=== PATIENT | male | born 1970 | race Caucasian/White ===

== ENCOUNTER 2021-01-18 02:28 | Emergency (ER) | payer OTHER, SELFPAY ==
--- NOTE | ~2021-01-18 | XR_ITS ---
EXAMINATION: XR chest 2V DATE: 01/18/2021 02:54 INDICATION: Chest pain TECHNIQUE: PA and lateral views of the chest are obtained. COMPARISON: 01/26/2015 FINDINGS: The lungs are free of acute opacities. There is no pleural effusion or pneumothorax. The ca rdiomediastinal silhouette is normal. There is mild thoracic spondylosis. IMPRESSION: 1. No acute cardiopulmonary abnormality. Reviewed, dictated and finalized at location A.
[2021-01-18 02:31] VITALS: BP 143/103; PULSE 65; RESP 16; TEMP 36.8; O2SAT 100
--- NOTE | 2021-01-18 02:35 | ECG_ITS ---
Measurements Intervals [place] Rate: 58 P: 27 MS: 164 QRS: 26 QRSD: 89 T: -3 QT: 396 QTc: 391 Interpretive Statements SINUS BRADYCARDIA NONSPECIFIC T-WAVE ABNORMALITY- INF/LAT LEADS BORDERLINE ECG Electronically Signed On 01-18-2021 7:14:28 CDT by lFaquito Mcneill D.O.
[2021-01-18 02:40] VITALS: PULSE 74
[2021-01-18 02:52] LABS: Basophils Absolute Auto 0.1 K/mm3 (0.0-0.1); Basophils Percent Auto 0.8 % (0.2-1.2); Eosinophils Absolute Auto 0.2 K/mm3 (0-0.3); Eosinophils Percent Auto 2.1 % (0-4.4); Hematocrit 48.5 % (42.0-52.0); Hemoglobin 16.7 g/dL (14.0-18.0); Lymphocytes Absolute Auto 3.46 K/mm3 (0.9-3.2); Lymphocytes Percent Auto 34.4 % (18.3-44.2); Mean Corpuscular HGB Conc 34.4 g/dl (32-36); Mean Corpuscular Hemoglobin 31.3 pg (26-34); Mean Platelet Volume 9.8 fl (7.4-10.4); Monocytes Absolute Auto 0.8 K/mm3 (0.1-0.6); Monocytes Percent Auto 8.2 % (2.6-8.5); Neutrophils Absolute Auto 5.4 K/mm3 (1.3-6.7); Neutrophils Percent Auto 53.5 % (45.5-73.1); Platelet Count Result 172 k/mm3 (150-375); Red Blood Count 5.33 M/mm3 (4.6-6.20); Red Cell Distribution Width 12.5 % (11.5-14.5); White Blood Count 10.1 K/mm3 (4.5-10.0)
[2021-01-18 03:02] LABS: INR 0.9
[2021-01-18 03:14] LABS: Anion Gap 6 mmol/L (8-16); Blood Urea Nitrogen 16 mg/dL (9-20); Calcium 9.7 mg/dL (8.4-10.2); Carbon Dioxide 26 mmol/L (22-30); Chloride 106 mmol/L (98-107); Estimated CRCL calculation 113 ml/min; Estimated Glomerular Filt Rate > 60; Glucose 106 mg/dL (75-110); Potassium 4.3 mmol/L (3.4-5.0); Sodium 138 mmol/L (137-145)
[2021-01-18 03:16] LABS: Troponin I < 0.012 ng/mL (0.000-0.034)
[2021-01-18] MEDS: ASPIRIN 81 MG CHEWABLE TABLET 324 MG PO (03:17)
[2021-01-18 03:19] VITALS: BP 124/86; PULSE 54; RESP 13; O2SAT 97
--- NOTE | 2021-01-18 03:24 | ED.CHESTPAIN ---
HPI - Chest Pain General Chief Complaint: Chest Pain Stated Complaint: chest pain Time Seen by Provider: 01/18/21 03:13 Source: patient and RN notes reviewed Mode of arrival: ambulatory Limitations: no limitations History of Present Illness HPI narrative: Patient is 50 years old white male presents with intermittent chest pain for the last 2 weeks radiating to left upper extremity. No worse 1 was 8 out of 10, currently 1 out of 10. Patient had similar symptoms years ago with negative cardiac cath years ago. And was told that he had PVCs causing his chest pain. Patient denies any fever, chills, nausea, vomiting, shortness of breath, back pain or abdominal pain. The patient and his reports times of stress lately. Patient does not take medicine at home, patient drinks occasionally, smokes cigarettes, denies drug use. No family history of coronary artery disease. Related Data Home Medications Medication Instructions Recorded Confirmed No Home Medications 01/18/21 Allergies Allergy/AdvReac Type Severity Reaction Status Date / Time tramadol Allergy Unknown Blister Verified 01/18/21 02:34 Review of Systems Review of Systems: Narrative: CONSTITUTIONAL: Denies fever, chills, or sweats. EYES: Denies visual changes, redness, or discharge. ENT: Denies rhinorrhea, congestion, sore throat, or otalgia. CARDIOVASCULAR: Denies chest pain, palpitations, or edema. RESPIRATORY: Denies cough or dyspnea. GASTROINTESTINAL: Denies abdominal pain, nausea, vomiting, or diarrhea. GENITOURINARY: Denies dysuria or hematuria. SKIN: Denies rash or itching. MUSCULOSKELETAL: Denies back pain, joint pain, or myalgia. NEUROLOGIC: Denies headache, numbness, or weakness. PSYCHIATRIC: Denies anxiety or depression. PMFSH Family History Family History Other Carcinoma of colon Family history of arthritis Family history of cardiovascular disease Family history of glaucoma Family history of malignant neoplasm Hypertension Malignant neoplasm of prostate Social History Social History Smoking status: Smoker, status unknown Alcohol intake: current Exam Narrative: Exam Narrative: General appearance: Well-developed, well-nourished, anxious, restless, at the bedside Skin: Normal color Head: Normocephalic, nontraumatic Eyes: Clear conjunctiva ENT: Oropharynx normal, ears normal, nose normal Neck: Supple, nontender Chest and respiratory: Airway patent, no respiratory distress, no accessory muscle use Heart: Regular rate/rhythm Abdomen: Soft, nontender, no organomegaly, quiet bowel sounds Vascular: Normal peripheral pulses, normal capillary refill. Musculoskeletal: Normal range of motion, nontender back Neurologic: Alert and oriented ?3, FLEET MECHANIC is normal as tested, no gross motor deficit Course Course Emergency Course: Stable, improving Vital Signs Vital signs: Vital Signs Temperature 36.8 C 01/18/21 02:31 Pulse Rate 65 01/18/21 02:31 Respiratory Rate 16 01/18/21 02:31 Blood Pressure 143/103 H 01/18/21 02:31 Pulse Oximetry 100 01/18/21 02:31 Temperature 36.8 C 01/18/21 02:31 Pulse Rate 69 01/18/21 05:35 Respiratory Rate 21 H 01/18/21 05:35 Blood Pressure 119/79 01/18/21 05:35 Pulse Oximetry 94 01/18/21 05:35 MDM - Chest Pain MDM Narrative Medical decision making narrative: Patient presents with intermittent chest pain for the last 2 weeks. No coronary artery risk factors. Patient under a lot of stress, which high likely causing patient's symptoms. Labs, EKG, chest x-ray ordered. Further plan to follow Diff
[2021-01-18] MEDS: LORazepam (*CRX) 0.5 MG TABLET 1 MG PO (03:31)
[2021-01-18 05:35] VITALS: BP 119/79; PULSE 69; RESP 21; O2SAT 94
[2021-01-18 06:14] LABS: Troponin I < 0.012 ng/mL (0.000-0.034)
[2021-01-18 06:29] VITALS: BP 115/90; PULSE 75; RESP 12; TEMP 36.8; O2SAT 96
== END 2021-01-18 06:30 | disposition home or self-care (01) ==
PROVIDERS: Emergency Provider Emergency Medicine
DX: R07.9 Chest pain, unspecified (principal); R00.1 Bradycardia, unspecified
CPT/HCPCS: 36415; 71046; 80048; 84484; 85025; 85610; 85730; 93005; 99284; A9270

== ENCOUNTER 2021-09-29 14:08 | Outpatient (CLI) | payer BC, SELFPAY ==
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
== END 2021-09-29 14:09 | disposition home or self-care (01) ==
LOC: ANHBWCIMG 14:10
PROVIDERS: PCP Family Medicine; Visit Provider Family Medicine
DX: R07.89 Other chest pain (principal); R07.81 Pleurodynia
CPT/HCPCS: 71110; 71120

== ENCOUNTER 2021-10-12 15:23 | Outpatient (CLI) | payer BC, SELFPAY ==
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
== END 2021-10-12 15:24 | disposition home or self-care (01) ==
LOC: ANHBWCIMG 15:25
PROVIDERS: PCP Family Medicine; Visit Provider Family Medicine
DX: M18.12 Unilateral primary osteoarthritis of first carpometacarpal joint, left hand (principal); M19.042 Primary osteoarthritis, left hand; M47.817 Spondylosis without myelopathy or radiculopathy, lumbosacral region
CPT/HCPCS: 72100; 73140

== ENCOUNTER 2021-10-15 09:22 | Outpatient (CLI) | payer BC, SELFPAY ==
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
== END 2021-10-15 09:23 ==
LOC: MICIMG 09:23
PROVIDERS: PCP Family Medicine; Visit Provider Family Medicine
DX: R07.81 Pleurodynia (principal); R07.89 Other chest pain
CPT/HCPCS: 76604

== ENCOUNTER 2022-02-18 07:19 | Emergency (ER) | payer BC, SELFPAY ==
--- NOTE | ~2022-02-18 | XR_ITS ---
EXAMINATION: XR knee RT min 4V DATE: 02/18/2022 08:21 INDICATION: Right knee pain TECHNIQUE: Four views of the right knee were obtained. COMPARISON: 02/15/2015 FINDINGS: Alignment is normal. No fracture or osteochondral lesion. There is moderate narrowing of th e medial and patellofemoral compartments with slight worsening. There is a chronic moderate size join t effusion. Soft tissues are unremarkable. IMPRESSION: 1. Osteoarthritis with slight worsening. 2. Chronic moderate-sized joint effusion. Reviewed, dictated and finalized at location A.
[2022-02-18 07:23] VITALS: BP 139/76; PULSE 77; RESP 12; TEMP 36.6; O2SAT 97
--- NOTE | 2022-02-18 08:08 | ED.GENADULT ---
HPI - General Adult General Chief complaint: Extremity Injury, Lower Stated complaint: R knee pain Time Seen by Provider: 02/18/22 07:28 History of Present Illness HPI narrative: 51-year-old male presenting to the emergency department for evaluation of lateral right knee pain. Patient states approximate 2 days ago he was getting off the couch and twisted his knee and felt a tearing sensation. Patient states since then the pain has significantly worsened. Patient has attempted ice, Tylenol and ibuprofen for pain for symptom control but states he has had no improvement. Patient reports pain with full extension and flexion of the knee. Patient also reports increased pain with weightbearing. Patient has had previous follow-up with orthopedics, Dr. Lewis. Related Data Home Medications Medication Instructions Recorded Confirmed albuterol sulfate 90 mcg/actuation 2 inh inhalation Q6H PRN shortness 09/29/21 01/19/22 breath activated powder of breath or wheezing inhaler,sensor cyclobenzaprine 5 mg tablet 5 mg PO BID PRN 09/29/21 01/19/22 Allergies Allergy/AdvReac Type Severity Reaction Status Date / Time tramadol Allergy Unknown Blister Verified 02/18/22 07:29 Review of Systems Review of Systems: CONSTITUTIONAL: Denies fever, chills, or sweats. EYES: Denies visual changes, redness, or discharge. ENT: Denies rhinorrhea, congestion, sore throat, or otalgia. CARDIOVASCULAR: Denies chest pain, palpitations, or edema. RESPIRATORY: Denies cough or dyspnea. GASTROINTESTINAL: Denies abdominal pain, nausea, vomiting, or diarrhea. GENITOURINARY: Denies dysuria or hematuria. SKIN: Denies rash or itching. MUSCULOSKELETAL: See HPI NEUROLOGIC: Denies headache, numbness, or weakness. [facility], [facility] Past Medical History Medical History (Updated 02/18/22 @ 09:11 by Devon Michaud MD) Right arm fracture Tonsillectomy planned Surgical History Surgical History H/O right knee surgery History of colon surgery Family History Family History Father Cancer Mother Hypertension Thyroid disorder Cancer Sibling Leukemia Colon cancer Other Carcinoma of colon Family history of arthritis Family history of cardiovascular disease Family history of glaucoma Family history of malignant neoplasm Malignant neoplasm of prostate Social History Social History Smoking packs per day: 1 Smoking cigarettes per day: 20.0 Years smoked: 19 Smoking pack-years: 19.00 Smoking status: Current every day smoker Alcohol intake: current Exam Narrative: APPEARANCE: Well appearing, no pain, no distress, well-nourished. HEAD: normocephalic, atraumatic. NECK: Supple. No adenopathy, no masses. RESPIRATORY: Airway patent, respirations nonlabored. Clear to auscultation bilaterally, no rales, rhonchi, wheezing. CARDIOVASCULAR: Regular rate and rhythm without murmurs rubs or gallops. MUSCULOSKELETAL: Knee effusion. Right lateral knee tenderness to palpation. No pain with passive flexion or extension. Patient does have limited range of motion due to the effusion NEURO: Alert. Cranial nerves II through XII intact. Grossly intact SKIN: Warm, dry. Normal Color Course Vital Signs Vital signs: Vital Signs Temperature 97.8 F 02/18/22 07:23 Pulse Rate 77 02/18/22 07:23 Respiratory Rate 12 02/18/22 07:23 Blood Pressure 139/76 02/18/22 07:23 Pulse Oximetry 97 02/18/22 07:23 Oxygen Delivery Room Air 02/18/22 07:23 Temperature 97.8 F 02/18/22 07:23 Pulse Rate 77 02/18/22 07:23 Respiratory Rate 12 02/18/22 07:23 Blood Pressure 139/76 02/18/22 07:23 Pulse Oximetry 97 02/18/22 07:23 Oxygen Delivery Room Air 02/18/22 07:23 Medical Decision Making Vital Signs Vital Signs: Vital Signs Temperature 97.8 F 02/18/22 07:23 Pul
== END 2022-02-18 09:35 | disposition home or self-care (01) ==
PROVIDERS: Emergency Provider Emergency Medicine; PCP Family Medicine
DX: M25.561 Pain in right knee (principal); F17.210 Nicotine dependence, cigarettes, uncomplicated; M17.11 Unilateral primary osteoarthritis, right knee
CPT/HCPCS: 73564; 99283

== ENCOUNTER 2022-04-20 07:15 | Outpatient (CLI) | payer BC, SELFPAY ==
[2022-04-20 19:14] LABS: Hematocrit 51.4 % (42.0-52.0); Hemoglobin 16.6 g/dL (14.0-18.0); Mean Corpuscular HGB Conc 32.3 g/dl (32-36); Mean Corpuscular Hemoglobin 31.6 pg (26-34); Mean Corpuscular Volume 97.9 fl (80-100); Mean Platelet Volume 10.2 fl (7.4-10.4); Platelet Count Result 202 k/mm3 (150-375); Red Blood Count 5.25 M/mm3 (4.6-6.20); Red Cell Distribution Width 13.2 % (11.5-14.5); White Blood Count 7.3 K/mm3 (4.5-10.0)
[2022-04-20 19:27] LABS: Alanine Aminotransferase 34 U/L (6-50); Albumin Level 4.4 g/dL (3.5-5.1); Alkaline Phosphatase 79 U/L (38-126); Anion Gap 11 mmol/L (8-16); Aspartate Amino Transferase 50 U/L (17-59); Bilirubin,Total 0.6 mg/dL (0.2-1.3); Blood Urea Nitrogen 15 mg/dL (9-20); Calcium 9.2 mg/dL (8.4-10.2); Carbon Dioxide 25 mmol/L (22-30); Chloride 104 mmol/L (98-107); Cholesterol 138 mg/dL (0-200); Estimated Glomerular Filt Rate > 60; Glucose 96 mg/dL (65-110); HDL Direct 33 mg/dL; Potassium 4.1 mmol/L (3.4-5.0); Sodium 140 mmol/L (137-145); Triglycerides 122 mg/dL (<150)
[2022-04-20 19:38] LABS: LDL Cholesterol Direct 73 mg/dL
[2022-04-24 17:32] LABS: Testosterone Free 43.1 pg/mL (35.0-155.0); Testosterone Total 219 ng/dL (250-1100)
== END 2022-04-20 07:16 | disposition home or self-care (01) ==
LOC: ANHBWCLAB 07:17
PROVIDERS: PCP Family Medicine; Visit Provider Family Medicine
DX: K59.00 Constipation, unspecified (principal); R53.83 Other fatigue
CPT/HCPCS: 36415; 80053; 80061; 84402; 84403; 84443; 85027

== ENCOUNTER 2022-06-14 07:27 | Outpatient (CLI) | payer BC, SELFPAY ==
[2022-06-14 19:11] LABS: Free T4 Free Thyroxine 1.02 ng/mL (0.78-2.19)
[2022-06-16 12:01] LABS: Sex Hormone Binding Globulin 28 nmol/L (10-50)
[2022-06-17 11:03] LABS: DHEA-Sulfate 124 mcg/dL (70-495)
[2022-06-17 21:56] LABS: Testosterone Free 78.1 pg/mL (35.0-155.0); Testosterone Total 427 ng/dL (250-1100)
[2022-06-18 07:11] LABS: FSH 4.8 mIU/mL (1.6-8.0); Prolactin 6.7 ng/mL (***)
== END 2022-06-14 07:28 | disposition home or self-care (01) ==
LOC: ANHBWCLAB 07:28
PROVIDERS: PCP Family Medicine; Visit Provider Family Medicine
DX: R79.89 Other specified abnormal findings of blood chemistry (principal)
CPT/HCPCS: 36415; 82533; 82627; 82728; 83001; 83002; 84146; 84270; 84402; 84403; 84439